=== PATIENT | female | born 1950 | race American Indian/Alaskan Native ===

== ENCOUNTER 2016-12-21 06:54 | Outpatient (CLI) | payer MEDICARE ==
--- NOTE | 2016-12-21 08:53 | Mammography Report ---
BILATERAL DIGITAL SCREENING MAMMOGRAM with CAD: 12/21/16 06:54:00 CLINICAL: Routine screening. COMPARISON:12/12/15 and 11/27/14 FINDINGS: The breasts are almost entirely fatty. No mass, architectural distortion or suspicious calcifications. IMPRESSION: No mammographic evidence of malignancy. BI-RADS CATEGORY: 2 - - Benign RECOMMENDATION: Routine mammographic screening the COMMENT: Patient follow-up letters are generated by our [employer] application.
== END 2016-12-21 06:55 | disposition home or self-care (01) ==
LOC: MAMMO 06:54
PROVIDERS: ATTEND Internal Medicine
DX: Z12.31 Encounter for screening mammogram for malignant neoplasm of breast (principal); I11.0 Hypertensive heart disease with heart failure; I50.9 Heart failure, unspecified; E11.9 Type 2 diabetes mellitus without complications; Z87.891 Personal history of nicotine dependence
CPT/HCPCS: 77067; G0202

== ENCOUNTER 2017-12-23 08:02 | Outpatient (CLI) | payer MEDICARE ==
--- NOTE | 2017-12-23 11:14 | Mammography Report ---
BILATERAL DIGITAL SCREENING MAMMOGRAM with CAD: 12/23/17 08:02:00 CLINICAL: Routine screening. COMPARISON:12/21/16 FINDINGS: The breasts are mostly fatty. A spiculated left outer asymmetry on the CC view requires additional imaging.No correlation on the MLO view. 2 groups of calcifications in the left breast are unchanged since 11/27/14. The right breast is negative. IMPRESSION: And left asymmetry requiring further workup. BI-RADS CATEGORY: 0 -- Additional Imaging Evaluation Required RECOMMENDATION: Recall for mediolateral and spot magnification CC views and left breast ultrasound. ACR BI-RADS MAMMOGRAPHIC CODES: 0 = Needs additional imaging evaluation; 1 = Negative; 2 = Benign; 3 = Probably benign; 4 = Suspicious; 5 = Malignant; 6 = Known biopsy-proven malignancy COMMENT: 1. Dense breast tissue, i.e., adenosis, fibrocystic changes, etc., may obscure an underlying neoplasm. 2. Approximately 10% of cancers are not detected with mammography. 3. A negative mammography report should not delay biopsy if a clinically suspicious mass is present. COMMENT: Patient follow-up letters are generated via our [employer] application.
== END 2017-12-23 08:03 | disposition home or self-care (01) ==
LOC: MAMMO 08:02
PROVIDERS: ATTEND Internal Medicine
DX: Z12.31 Encounter for screening mammogram for malignant neoplasm of breast (principal); E78.00 Pure hypercholesterolemia, unspecified; I10 Essential (primary) hypertension; J44.9 Chronic obstructive pulmonary disease, unspecified; Z90.710 Acquired absence of both cervix and uterus; M10.9 Gout, unspecified; E03.9 Hypothyroidism, unspecified; E11.9 Type 2 diabetes mellitus without complications; Z90.89 Acquired absence of other organs; Z87.891 Personal history of nicotine dependence
CPT/HCPCS: 77067

== ENCOUNTER 2017-12-31 10:37 | Outpatient (CLI) | payer MEDICARE ==
--- NOTE | 2017-12-31 11:02 | Mammography Report ---
LEFT DIGITAL DIAGNOSTIC MAMMOGRAM : 12/31/17 10:37:00 CLINICAL: Recalled for asymmetry. COMPARISON:12/23/17 screening FINDINGS: Additional mammographic views were performed and are negative. IMPRESSION: Negative Mammogram. BI-RADS CATEGORY: 1 -- Negative RECOMMENDATION: Routine mammographic screening in one year. ACR BI-RADS MAMMOGRAPHIC CODES: 0 = Needs additional imaging evaluation; 1 = Negative; 2 = Benign; 3 = Probably benign; 4 = Suspicious; 5 = Malignant; 6 = Known biopsy-proven malignancy COMMENT: 1. Dense breast tissue, i.e., adenosis, fibrocystic changes, etc., may obscure an underlying neoplasm. 2. Approximately 10% of cancers are not detected with mammography. 3. A negative mammography report should not delay biopsy if a clinically suspicious mass is present. COMMENT: Patient follow-up letters are generated via our [employer] application.
== END 2017-12-31 10:38 | disposition home or self-care (01) ==
LOC: MAMMO 10:37
DX: R92.8 Other abnormal and inconclusive findings on diagnostic imaging of breast (principal); E78.00 Pure hypercholesterolemia, unspecified; I10 Essential (primary) hypertension; J44.9 Chronic obstructive pulmonary disease, unspecified; E03.9 Hypothyroidism, unspecified; E11.9 Type 2 diabetes mellitus without complications; M10.9 Gout, unspecified; Z86.73 Personal history of transient ischemic attack (TIA), and cerebral infarction without residual deficits; Z90.710 Acquired absence of both cervix and uterus; Z87.891 Personal history of nicotine dependence; Z90.89 Acquired absence of other organs

== ENCOUNTER 2018-12-30 06:59 | Outpatient (CLI) | payer MEDICARE ==
--- NOTE | 2019-01-02 08:58 | Mammography Report ---
DIGITAL SCREENING MAMMOGRAM WITH CAD, 12/30/2018 INDICATION: Routine screening mammography. TECHNIQUE: Digital bilateral 2D mammography was obtained in the craniocaudal and mediolateral obliq ue projections. This examination was interpreted with the benefit of Computer-Aided Detection analysi s. COMPARISON: 12/23/2017 FINDINGS: Breast Density: There are scattered areas of fibroglandular density. There is no evidence of dominant mass, suspicious calcifications or architectural distortion in eithe r breast. IMPRESSION: No mammographic evidence of malignancy. Follow up recommendation: Routine yearly BI-RADS Category 1: Negative. A "normal" or negative report should not discourage follow up or biopsy of a clinically significant f inding. A written summary of these findings will be mailed to the patient. The patient will be entered into a mammography reporting system which will generate a reminder letter for the patient's next appointmen t at the appropriate interval. The [employer] recommends yearly mammograms starting at age 40 and continuing as l pavan as a woman is in good health. Breast MRI is recommended for women with an approximate 20-25% or greater lifetime risk of breast cancer, including women with a strong family history of breast or [place] cancer or who have been treated for Hodgkin's disease. Signer Name: Miguel Angel Davis MD Signed: 01/02/2019 8:53 AM Workstation Name: [id number]
== END 2018-12-30 07:00 | disposition home or self-care (01) ==
LOC: MAMMO 06:59
PROVIDERS: ATTEND Internal Medicine
DX: Z12.31 Encounter for screening mammogram for malignant neoplasm of breast (principal); E78.00 Pure hypercholesterolemia, unspecified; I10 Essential (primary) hypertension; J44.9 Chronic obstructive pulmonary disease, unspecified; Z90.710 Acquired absence of both cervix and uterus
CPT/HCPCS: 77067

== ENCOUNTER 2020-01-01 07:56 | Outpatient (CLI) | payer MEDICARE ==
--- NOTE | 2020-01-01 10:23 | Mammography Report ---
DIGITAL SCREENING MAMMOGRAM WITH CAD, 01/01/2020 INDICATION: Routine screening mammography. TECHNIQUE: Digital bilateral 2D mammography was obtained in the craniocaudal and mediolateral obliq ue projections. This examination was interpreted with the benefit of Computer-Aided Detection analysi s. COMPARISON: Prior mammograms 12/30/2018 and 12/23/2017 FINDINGS: Breast Density: There are scattered areas of fibroglandular density. There is no evidence of dominant mass, suspicious calcifications or architectural distortion in eithe r breast. There are stable benign-appearing calcifications seen in the left breast. There has been no significant change compared with the prior examinations. IMPRESSION: Follow up recommendation: Routine yearly BI-RADS Category 2: Benign. A "normal" or negative report should not discourage follow up or biopsy of a clinically significant f inding. A written summary of these findings will be mailed to the patient. The patient will be entered into a mammography reporting system which will generate a reminder letter for the patient's next appointmen t at the appropriate interval. The [employer] recommends yearly mammograms starting at age 40 and continuing as l pavan as a woman is in good health. Breast MRI is recommended for women with an approximate 20-25% or greater lifetime risk of breast cancer, including women with a strong family history of breast or [place] cancer or who have been treated for Hodgkin's disease. Signer Name: Maria Del Carmen Bateman MD Signed: 01/01/2020 10:18 AM Workstation Name: [id number]
== END 2020-01-01 07:57 | disposition home or self-care (01) ==
LOC: MAMMO 07:56
PROVIDERS: ATTEND Internal Medicine
DX: Z12.31 Encounter for screening mammogram for malignant neoplasm of breast (principal)
CPT/HCPCS: 77067

== ENCOUNTER 2020-12-12 08:50 | Outpatient (CLI) | payer MEDICARE ==
--- NOTE | 2020-12-12 11:53 | Vascular Lab Report ---
Duplex carotid sonography with spectral analysis Indication: NONRHEUMATIC AORTIC (VALVE) STENOSIS Tortuous arteries making evaluation more difficult. Mild carotid atherosclerotic changes are seen. In the right internal carotid artery no significant velocity elevations are seen to suggest a hemodyn amically-significant stenosis. Peak systolic velocity of the right ICA is 53 cm/s. In the left internal carotid artery no significant velocity elevations are seen to suggest a hemodyna mically-significant stenosis. Peak systolic velocity of the left ICA is 72 cm/s. Right ICA/CCA ratio: 0.62 Left ICA/CCA ratio: 1.31 Vertebral flow is antegrade bilaterally. Impression: No evidence of hemodynamically-significant stenosis by NASCET-type criteria. . Signer Name: Rene Lovelace MD Signed: 12/12/2020 11:48 AM Workstation Name: [id number]
== END 2020-12-12 08:51 | disposition home or self-care (01) ==
LOC: VAS 08:50
PROVIDERS: ATTEND Internal Medicine Cardiovascular Disease
DX: I10 Essential (primary) hypertension (principal)
CPT/HCPCS: 93880

== ENCOUNTER 2021-01-01 09:29 | Outpatient (CLI) | payer MEDICARE ==
--- NOTE | 2021-01-01 12:08 | Mammography Report ---
DIGITAL SCREENING MAMMOGRAM WITH CAD, 01/01/2021 CLINICAL INFORMATION / INDICATION: Routine screening mammography. SCREENING MAMMOGRAM TECHNIQUE: Digital bilateral 2D mammography was obtained in the craniocaudal and mediolateral obliqu e projections. This examination was interpreted with the benefit of Computer-Aided Detection analysis . COMPARISON: 11/11/2012 through 01/01/2020. FINDINGS: Breast Density: There are scattered areas of fibroglandular density. No dominant mass, suspicious calcifications, or architectural distortion in either breast. A small benign nodule in the right upper outer quadrant is stable. Benign-appearing left breast calci fications are unchanged. There are minimal breast arterial calcifications bilaterally. IMPRESSION: No mammographic evidence of malignancy. Follow up recommendation: Routine yearly BI-RADS Category 2: Benign. A "normal" or negative report should not discourage follow up or biopsy of a clinically significant f inding. A written summary of these findings will be mailed to the patient. The patient will be entered into a mammography reporting system which will generate a reminder letter for the patient's next appointmen t at the appropriate interval. The [employer] recommends yearly mammograms starting at age 40 and continuing as l pavan as a woman is in good health. Breast MRI is recommended for women with an approximate 20-25% or greater lifetime risk of breast cancer, including women with a strong family history of breast or [place] cancer or who have been treated for Hodgkin's disease. Signer Name: Jeff Orourke MD Signed: 01/01/2021 12:04 PM Workstation Name: [id number]
== END 2021-01-01 09:30 | disposition home or self-care (01) ==
LOC: MAMMO 09:29
PROVIDERS: ATTEND Internal Medicine
DX: Z12.31 Encounter for screening mammogram for malignant neoplasm of breast (principal); N63.11 Unspecified lump in the right breast, upper outer quadrant
CPT/HCPCS: 77067

== ENCOUNTER 2022-01-02 07:10 | Outpatient (CLI) | payer MEDICARE ==
--- NOTE | 2022-01-06 08:14 | Mammography Report ---
DIGITAL SCREENING MAMMOGRAM WITH CAD, 01/02/2022 CLINICAL INFORMATION / INDICATION: Routine screening mammography. SCREENING MAMMOGRAM Z12.31 TECHNIQUE: Digital bilateral 2D mammography was obtained in the craniocaudal and mediolateral obliqu e projections. This examination was interpreted with the benefit of Computer-Aided Detection analysis . COMPARISON: 01/01/2020 FINDINGS: Breast Density: The breasts are almost entirely fatty. No dominant mass, suspicious calcifications, or architectural distortion in either breast. No interval change. IMPRESSION: No mammographic evidence of malignancy. Follow up recommendation: Routine yearly screening mammogram. BI-RADS Category 1: NEGATIVE A "normal" or negative report should not discourage follow up or biopsy of a clinically significant f inding. A written summary of these findings will be mailed to the patient. The patient will be entered into a mammography reporting system which will generate a reminder letter for the patient's next appointmen t at the appropriate interval. The [employer] recommends yearly mammograms starting at age 40 and continuing as l pavan as a woman is in good health. Breast MRI is recommended for women with an approximate 20-25% or greater lifetime risk of breast cancer, including women with a strong family history of breast or [place] cancer or who have been treated for Hodgkin's disease. Signer Name: Gretta Hernandez MD Signed: 01/06/2022 8:10 AM Workstation Name: [id number]
== END 2022-01-02 07:11 | disposition home or self-care (01) ==
LOC: MAMMO 07:10
PROVIDERS: ATTEND Internal Medicine
DX: Z12.31 Encounter for screening mammogram for malignant neoplasm of breast (principal)
CPT/HCPCS: 77067